=== PATIENT | female | born 1990 | race Caucasian/White ===

== ENCOUNTER 2016-07-14 09:24 | Emergency (ER) | payer MEDICAID ==
--- NOTE | 2016-07-14 10:12 | ED Physician Chart ---
Chief Complaint/HPI - Patient Information Date Seen:: 07/14/16 Time Seen:: 09:50 Chief Complaint:: left ear pain History of Present Illness:: patient has had rhinorrhea and sore throat for one week. Had yellow discharge from right eye. Awoke this am at 0300 with left earache. Denies cough. Allergies:: Allergies Allergy/AdvReac Type Severity Reaction Status Date / Time amoxicillin Allergy Verified 10/07/15 20:16 Vitals:: Vital Signs - 8 hr 07/14/16 07/14/16 09:44 09:58 Temp 98.6 F 98.6 F HR 77 77 RR 16 16 BP 125/78 125/88 O2 Sat % 98 99 Historian:: Patient Review:: Nurse's Note Reviewed Review of Systems - Review of Systems General/Constitutional: No weight loss, No weakness, No diaphoresis Skin: No skin lesions, No rash Head: No headache Eyes: No loss of vision ENT: Earache, Nasal drainage, Sore throat Neck: No neck pain, No thyromegaly Cardio Vascular: No chest pain Pulmonary: No SOB GI: No nausea, No vomiting, No diarrhea G/U: No dysuria [employer] Principal: No vaginal discharge Musculoskeletal: No bone or joint pain, No back pain, No muscle pain Endocrine: No polyuria, No polydipsia Psychiatric: No prior psych history, No depression, No anxiety Hematopoietic: No bruising, No lymphadenopathy Allergic/Immuno: No urticaria, No angioedema Neurological: No syncope, No headache, No seizure, No dizziness Past Medical History - Past Medical History Past Medical History: No significant medical hx Family History: None Social History: Smoker, No Alcohol Surgical History: None Psychiatricy History: None Medication: None Family Medical History - Family Member Mother History Unknown: Yes Physical Exam - Physical Examination General/Constitutional: Well-developed, well-nourished, Alert, No distress Head: Atraumatic Eyes: Lids, conjuctiva normal, PERRL Other Eyes comments:: no conjunctival redness Skin: Nl inspection, No rash ENMT: External ears, nose nl, Nasal exam nl, Oropharynx nl, Tonsils nl Other ENMT comments:: minimal erythema left TM; mild pain with movement left ear; tenderness left TMJ Neck: No nuchal rigidity Respiratory: Nl effort/Exclusion, Clear to Auscultation Cardio Vascular: RRR, No murmur, gallop, rubs, NL S1 S2 GI: No tenderness/rebounding/guarding, No organomegaly, No hernia, Normal BS's, Nondistended, No mass/bruits, No McBurney tenderness : No CVA tenderness Extremities: normal strength in all extremities, No edema, Normal digits & nails Neuro/Psych: Alert/oriented, No focal deficits Misc: Normal back, No paraspinal tenderness Assessment - Assessment General Assessment: patient told that if pain continues left TMJ she should see a dentist. ED Septic Shock - . Is Septic Shock (SBP<90, OR Lactate>4 mmol\L) present?: No - <6hrs of presentation: Vital Signs: Vital Signs - 8 hr 07/14/16 07/14/16 09:44 09:58 Temp 98.6 F 98.6 F HR 77 77 RR 16 16 BP 125/78 125/88 O2 Sat % 98 99 Reassessment (Disposition) - Reassessment Reassessment Condition:: Unchanged - Diagnosis Diagnosis:: left otitis media; left otitis externa; conjunctivitis right eye - Aftercare/Follow up Instructions Aftercare/Follow-Up Instructions:: Refer to Discharge Instructions Medication Prescribed:: Z pack; Cortisporin otic bernadette Sig 3 gtts left ear QID; Sulamyd 10% ophthalmic Sig 1 gtt right eye Q 2 hr while awake - Patient Disposition Discharge/Transfer:: Home Condition at Disposition:: Stable, Unchanged ED Discharge Plan - Patient Disposition Instructions: Otitis Media, Adult, [id number], Otitis Externa, Bacterial Conjunctivitis Additional Instructions: rest, increase fluids intake , take tylenol motrin for pain and fever as neede continue with your doctor for further eval
== END 2016-07-14 10:10 | disposition home or self-care (01) ==
LOC: ER 09:24
DX: H66.92 Otitis media, unspecified, left ear (principal); H60.92 Unspecified otitis externa, left ear; H10.9 Unspecified conjunctivitis; F17.200 Nicotine dependence, unspecified, uncomplicated; Z88.1 Allergy status to other antibiotic agents
CPT/HCPCS: Z7502

== ENCOUNTER 2017-02-11 22:19 | Emergency (ER) | payer MEDICAID ==
[2017-02-11] MEDS ORDERED: Gentamicin Ophth 0.3% Oint 3.5gm Tube ONE (23:24)
[2017-02-12] MEDS ORDERED: Gentamicin 0.3% Ophth Soln 5mL Bottle RIGHT EYE SCH (09:00)
--- NOTE | 2017-02-14 14:39 | ER Physician Documentation ---
DATE OF SERVICE: CHIEF COMPLAINT: The patient has a small stye in the right eye. She feels like a foreign body sensation in the right eye. She has itching in the right eye and somewhat painful in the right eye for 1 day duration. HISTORY OF PRESENT ILLNESS: The above complaint is of 1 day duration only shows you some fermentation of the right eye without much benefit. She does not have any other medical complaints. She does not have diabetes, hypertension, COPD. She does not have any other significant medical complaint. No other allergic complaint. PHYSICAL EXAMINATION: HEENT: The right eye has a small stye in the upper eyelids. No foreign body is seen. There is evidence of mild conjunctivitis is noted in the right eye. The left eye apparently is within normal limits. CLINICAL IMPRESSION: 1.The patient has a stye in the right eye. 2.Mild conjunctivitis. Treatment this patient will be getting, sulfacetamide 10% solution to be inserted one drop in the right eye 3 times a day and patient will be getting doxycycline 100 mg now followed by 100 mg p.o. b.i.d. for about 7 days and patient should not put oily things in the head and if any further treatment or worsening of the eye condition occurs, she can either visit the Emergency Room or see her eye physician. The patient's vital signs shows temperature of 98, pulse of 63, respirations of 17, blood pressure 113/60, saturation 97.2, height 5 feet 1 inch. She is mildly obese lady, weighing 160 pounds. Her last menstrual period was on 01/13/2017. [facility]# [id number]
--- NOTE | 2017-02-14 14:43 | ER Physician Documentation ---
DATE OF SERVICE: . JOB# [id number]
== END 2017-02-12 00:05 | disposition home or self-care (01) ==
LOC: ER 22:19
DX: H10.31 Unspecified acute conjunctivitis, right eye (principal)
CPT/HCPCS: Z7502

== ENCOUNTER 2017-10-04 11:48 | Emergency (ER) | payer MEDICAID ==
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
== END 2017-10-04 15:23 | disposition home or self-care (01) ==
LOC: ER 11:48
DX: S16.1XXA Strain of muscle, fascia and tendon at neck level, initial encounter (principal); M43.6 Torticollis; Z88.1 Allergy status to other antibiotic agents; X50.1XXA Overexertion from prolonged static or awkward postures, initial encounter; Y93.89 Activity, other specified; Y92.89 Other specified places as the place of occurrence of the external cause; Y99.8 Other external cause status
CPT/HCPCS: 99285; 96372; 70450; 72125; 81025; J1885

== ENCOUNTER 2017-10-20 21:26 | Emergency (ER) | payer MEDICAID ==
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
== END 2017-10-21 01:30 | disposition home or self-care (01) ==
LOC: ER 21:26
DX: S13.4XXA Sprain of ligaments of cervical spine, initial encounter (principal); S93.602A Unspecified sprain of left foot, initial encounter; Z88.0 Allergy status to penicillin; V49.40XA Driver injured in collision with unspecified motor vehicles in traffic accident, initial encounter; Y93.89 Activity, other specified; Y92.89 Other specified places as the place of occurrence of the external cause; Y99.8 Other external cause status
CPT/HCPCS: 72125-TC; 81025-TC; Z7502

== ENCOUNTER 2017-12-25 18:51 | Emergency (ER) | payer MEDICAID ==
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
== END 2017-12-25 20:35 | disposition home or self-care (01) ==
LOC: ER 18:51
DX: O26.891 Other specified pregnancy related conditions, first trimester (principal); R11.0 Nausea; Z3A.00 Weeks of gestation of pregnancy not specified; Z88.0 Allergy status to penicillin
CPT/HCPCS: 81025-TC; Z7502

== ENCOUNTER 2018-10-03 12:35 | Emergency (ER) | payer MEDICAID ==
--- NOTE | 2018-10-03 15:33 | ED Physician Chart ---
ED Chief Complaint/HPI - Patient Information Date Seen:: 10/03/18 Time Seen:: 12:50 Chief Complaint:: Sore Throat History of Present Illness:: onset x 4 days of S/T, dysphagia, fever, and FB sensation in throat; pt denies trauma, H/As, LOC, ALOC, AMS, visual or gait changes, weakness, dizziness, paresthesias, vertigo, neck pain, C/P, cough, SOB, Abd. 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 Allergies:: Allergies Allergy/AdvReac Type Severity Reaction Status Date / Time amoxicillin Allergy Verified 10/03/18 12:53 Vitals:: Vital Signs - 8 hr 10/03/18 10/03/18 12:50 13:25 Temp 97.9 F 97.9 F HR 65 65 RR 16 16 BP 115/77 115/77 O2 Sat % 100 115 Historian:: Patient Review:: Nurse's Note Reviewed, Old Chart Reviewed ED Review of Systems - Review of Systems General/Constitutional: No fever, No chills, No weight loss, No weakness, No diaphoresis, No edema, No loss of appetite Skin: No skin lesions, No rash, No bruising Head: No headache, No light-headedness Eyes: No loss of vision, No pain, No diplopia ENT: No earache, No nasal drainage, No sore throat, No tinnitus Neck: No neck pain, No swelling, No thyromegaly, No stiffness, No mass noted Cardio Vascular: No chest pain, No palpitations, No PND, No orthopnea, No edema Pulmonary: No SOB, No cough, No sputum, No wheezing GI: No nausea, No vomiting, No diarrhea, No pain, No melena, No hematochezia, No constipation, No hematemesis G/U: No dysuria, No frequency, No hematuria, No 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, No abnormal vaginal bleed, No contraction Musculoskeletal: No bone or joint pain, No back pain, No muscle pain Endocrine: No polyuria, No polydipsia Psychiatric: No prior psych history, No depression, No anxiety, No suicidal ideation, No homicidal ideation, No auditory hallucination, No visual hallucination Hematopoietic: No bruising, No lymphadenopathy Allergic/Immuno: No urticaria, No angioedema Neurological: No syncope, No focal symptoms, No weakness, No paresthesia, No headache, No seizure, No dizziness, No confusion, No vertigo ED Past Medical History - Past Medical History Obtainable: Yes Past Medical History: No significant medical hx Family History: None Social History: Non Smoker, No Alcohol, No Drug Use, Surgical History: None Psychiatricy History: None Medication: Reviewed Family Medical History - Family Member Mother History Unknown: Yes ED Physical Exam - Physical Examination General/Constitutional: Awake, Well-developed, well-nourished, Alert, No distress, GCS 15, Non-toxic appearing, Ambulatory Head: Atraumatic Eyes: Lids, conjuctiva normal, PERRL, EOMI Skin: Nl inspection, No rash, No skin lesions, No ecchymosis, Well hydrated, No lymphadenopathy ENMT: External ears, nose nl, TM canals nl, Nasal exam nl, Lips, teeth, gums nl , Tonsils nl Other ENMT comments:: Pharynx: Mild Injection; no exudates; no abscesses; no FBs; no airway obstruction Neck: Nontender, Full ROM w/o pain, No JVD, No nuchal rigidity, No bruit, No mass, No stridor Other Neck comments:: supple; no meningeal signs; no cervical tenderness; no bruits; no masses; no FBs Respiratory: Nl effort/Exclusion, Clear to Auscultation, No Wheeze/Rhonchi/Rales Cardio Vascular: RRR, No murmur, gallop, rubs, NL S1 S2, Carotid/Femoral/Distal pulses equal bilaterally GI: No tenderness/rebounding/guarding, No organomegaly, No hernia, Normal BS's, Nondistended, No mass/bruits, No McBurney tenderness, Rectum exam nl Other GI comments:: no pulsatile masses : No CVA tenderness Extremities: No tenderness or effusion, Full ROM, normal strength in all extremities, No edema, Normal digits & nails Neuro/Psych: Alert/oriented, DTR's symmetric, Normal sensory exam, Normal motor strength, Judgement/insight normal, Mood normal, Normal gait, No focal deficits Other Neuro/Psych comments:: no focal signs Misc: Normal back, No paraspinal tenderness ED Labs/Radiology/EKG Results - Radiology Results Comments:: X-Rays: deferred by pt ED Septic Shock - . Is Septic Shock (SBP<90, OR Lactate>4 mmol\L) present?: No - <6hrs of presentation: Vital Signs: Vital Signs - 8 hr 10/03/18 10/03/18 12:50 13:25 Temp 97.9 F 97.9 F HR 65 65 RR 16 16 BP 115/77 115/77 O2 Sat % 100 115 ED Reassessment (Disposition) - Reassessment Reassessment:: pt tolerated po fluids well in ER; pt is asymptomatic upon discharge Reassessment Condition:: Improved - Diagnosis Diagnosis:: Sore Throat; Pharyngitis; FB Throat Sensation; Dysphagia; GERD; Fever; URI - Aftercare/Follow up Instructions Aftercare/Follow-Up Instructions:: Counseled pt regarding lab results/diagnosis & need follow up, Refer to Discharge Instructions, Counseled pt & family regarding lab results/diagnosis & need follow up Medication Prescribed:: Rx: Azithromycin/Z-Pack (#6); Tylenol 500mg po qid prn pain/fever; Salt Water Gargles; take medications as prescribed; Fluids - Patient Disposition Discharge/Transfer:: Home Condition at Disposition:: Stable, Improved (RTER prn if existing s/s reoccur and/or get worse and/or any other new s/s occur; ACIs given for all above Dx; Refer to GI Specialist/ENT Specialist/Early Head Start Director ZACK; F/U with PMD Today or prn ; RTER prn if concerned)
== END 2018-10-03 13:37 | disposition home or self-care (01) ==
LOC: ER 12:35
DX: J02.9 Acute pharyngitis, unspecified (principal); K21.9 Gastro-esophageal reflux disease without esophagitis; R13.10 Dysphagia, unspecified; J06.9 Acute upper respiratory infection, unspecified; Z88.0 Allergy status to penicillin
CPT/HCPCS: Z7502